=== PATIENT | male | born 2000 | race Caucasian/White ===

== ENCOUNTER 2020-04-14 15:07 | Observation (INO) | payer OTHER, SELFPAY ==
[2020-04-14 15:07] VITALS: BP 139/58; PULSE 81; RESP 16; TEMP 36.4; O2SAT 98; BMI 40.1
--- NOTE | 2020-04-14 15:46 | CT_ITS ---
We are attempting to reach an attending provider to discuss findings. An addendum with communication details will be sent when the communication is complete. STUDY: CT ABDOMEN AND PELVIS WITH CONTRAST REASON FOR EXAM: Male, 19 years old. RLQ pain since this morning, nausea. RADIATION DOSAGE (If Supplied By Facility): CTDIvol = ( 21.79 ) mGy, DLP = ( 1361.98 ) mGycm TECHNIQUE: Transaxial images were obtained from the dome of the diaphragm to the symphysis pubis without oral contrast. Oral and amp; IV Gastrografin and amp; 100mL Isovue-300 was administered. Sagittal and coronal images were reconstructed. Individualized dose optimization techniques were used for this CT. COMPARISON: None. FINDINGS: The visualized lung bases are unremarkable. The visualized portions of the heart are within normal limits. Normal liver. Normal gallbladder and extrahepatic biliary system. Normal spleen. Normal pancreas. Normal bilateral adrenal glands. Normal right kidney. Normal left kidney. Normal visualized stomach. Oral contrast noted in the small bowel. Colonic diverticulosis. Increased stool throughout the colon. The appendix measures up to 7 mm in diameter and does not fill with contrast. Minimal if any inflammatory changes are appreciated. Small pericecal lymph nodes are noted. Normal abdominal aorta. Normal inferior vena cava. Normal retroperitoneum. Normal urinary bladder. There is a small umbilical hernia containing fat. Normal osseous structures. CT/Abdomen/Pelvis WITH Contrast IMPRESSION: Borderline appendix which does not fill with contrast. Early appendicitis is difficult to exclude therefore. Mesenteric lymphadenitis is also possible. Electronically Signed: Joshua Key MD at 17:54 EST , Service support ,
[2020-04-14 15:53] LABS: Absolute Lymphocyte Count 2.12 X10^3/uL (0.83-4.51); Absolute Neutrophil Count 6.6 X10^3/uL (2.0-7.7); Basophil# 0.03 X10^3/uL; Basophil% 0.3 % (0-1); Eosinophils% 1.1 % (0-5); Hematocrit 43.2 % (40-54); Hemoglobin 14.4 g/dL (13.0-16.5); Lymphocyte # 2.12 X10^3/ul (4.0); Lymphocyte % 22.4 % (19-41); Mean Corp Hgb Conc 33.3 g/dL (32-36); Mean Corpuscular Hgb 28.3 pg (27.0-32.0); Mean Platelet Vol. 11.1 fl (6.2-12.0); Monocyte# 0.54 X10^3/uL; Monocyte% 5.7 % (0-10); NRBC Flagged by Analyzer 0 % (0-5); Neutrophil # 6.64 X10^3/uL (2.7-7.7); Neutrophil % 70.3 % (47-70); Platelet Count 281 K/mm3 (150-450); RBC Distribution Width CV 12.5 % (11.6-14.6); RBC Distribution Width SD 38.6 fl (35.1-43.9); Red Blood Count 5.08 M/mm3 (4.6-6.2); White Blood Count 9.5 K/mm3 (4.4-11.0)
[2020-04-14] MEDS: 0.9% Normal Saline 1,000 ML 1000 ML IV (16:03)
[2020-04-14 16:05] LABS: Anion Gap 4 (5-15); BUN 10 mg/dL (7-18); BUN/Creat Ratio 10.5 RATIO (10-20); Calcium,Total 9.6 mg/dL (8.5-10.1); Chloride 107 mmol/L (98-107); Creatinine, Serum 0.95 mg/dL (0.70-1.30); EST Glomerular Filtration Rate 105 mL/min (>60); Est Glom Filt Rate - Afr Amer 128 mL/min (>60); Glucose 90 mg/dL (74-106); Potassium 3.7 mmol/L (3.5-5.1); Sodium Level 140 mmol/L (136-145)
[2020-04-14 16:07] LABS: Mucous, Urine 0 SEEN /hpf (<or=2+); Red Blood Cells-Urine 0 SEEN /hpf (0-5); Squamous Epithelial Cells - UA 0 SEEN /hpf (0-5); White Blood Cells 0 SEEN /hpf (0-5)
--- NOTE | 2020-04-14 16:12 | ED.VISSUMM ---
- ER Visit Summary Date of Service: 04/14/20 Chief Complaint: Abdominal pain History of Present Illness: The patient is a 19 M with no primary care physician. He reports his right lower quad abdominal pain began this morning. It was what woke him from sleep. Describes it as a sharp pain this morning. It is now dull. Is 8 out of 10 at worst and 3-10 currently. Is worsened by movement or pushing on it. Is relieved by nothing. Is been nauseated, but no vomiting. No diarrhea. His last problem was yesterday. No motor medication. No dysuria or frequency. Patient is never had a thing like this before. He does have a family history of kidney stones. No personal history of kidney stones. He denies flank pain. Physical Examination: Vitals: Stable. Afebrile. General: Well-nourished and well-developed. Head: Normocephalic atraumatic. Neck: Supple, no lymphadenopathy. No JVD. Nontender. Cardiovascular: Regular rate and rhythm. No murmurs. Respiratory: No respiratory distress. Clear to auscultation bilaterally. Abdominal: Soft, moderate right lower quadrant tenderness to palpation, nondistended, normal bowel sounds. No guarding, rebound, or peritoneal signs. Back: Nontender. Extremities: Nontender, no edema. Skin: Normal color, no rash. Neurologic: Alert and oriented ?3. Cranial nerves II through XII are intact. Normal strength and sensation. Psych: Normal affect. Test Results: CBC is normal. Chem-7 is normal. UA is positive for ketones only. Clinical Impression(s) from Imaging Studies Abdomen/Pelvis CT 04/14/20 15:46 IMPRESSION: Borderline appendix which does not fill with contrast. Early appendicitis is difficult to exclude therefore. Mesenteric lymphadenitis is also possible. Electronically Signed: Josuha Key MD at 17:54 EST , Service support , ADDENDUM: 04/14/20 3556 IMPRESSION: Borderline appendix which does not fill with contrast. Early appendicitis is difficult to exclude therefore. Mesenteric lymphadenitis is also possible. N.B. : The above information has been verbally conveyed by Joshua Key MD to Adiel Choi MD, on 04/14/2020 18:02:49 (ET). Electronically Signed: Joshua Key MD at 17:54 EST , Service support , Emergency Department Course and Treatment: Patient had an IV placed. He was given a liter normal saline. He refused pain or nausea medications. He is resting comfortably. Treatment Plan: The CT and patient presentation was discussed with Dr. Hu who has seen him in the emergency department. Patient does not want to have surgery tonight. He will be admitted to the hospital overnight for observation. Disposition: Admitted in stable condition. Impression: 1. Abdominal pain. This note was generated with [employer] dictation software. It may contain incorrect words, spelling, and punctuation that were not noted in review of the chart prior to signing ED Disposition - Plan for ED Patient: Referrals: Care Physician,No Primary [NON-STAFF] -
[2020-04-14 16:22] LABS: Color, Urine Yellow (Yellow); Glucose, Dipstick Normal (Normal); Ketone-Dipstick 5 mg/dl (Negative); Leukocyte Esterase-Dipstick Negative /ul (Negative); Nitrite-Dipstick Negative (Negative); Occult Blood-Urine Negative /ul (Negative); Protein-Dipstick Negative (Negative); Specific Gravity, Urine 1.015 (1.002-1.030); Urine Bilirubin Dipstick Negative (Negative); Urine Clarity Clear (Clear); Urine Urobilinogen Normal (Normal)
[2020-04-14 16:50] LABS: Bacteria 1+ /hpf (None Seen)
[2020-04-14 17:52] VITALS: BP 129/53; PULSE 74; RESP 16; O2SAT 97
--- NOTE | 2020-04-14 18:03 | CM.ED ---
Social Work Consult: No PCP Informant: Self Referral Met with patient in room. Introduced self and group social worker role. Patient agreeable to speak with this group social worker. This group social worker broached topic of no PCP for patient. Patient confirms to have not had a PCP until today. Patient states I just set up an appointment. Patient reports to have set up an appointment with Dr. Mckenna Santiago with [facility] in [place], [place]. Patient denies any community concerns/needs. Patient denies transportation concerns. Dr. Choi updated on patient plan to follow up with Dr. Santiago. This group social worker updated patient medical chart with new PCP information. Kam SCHMITZ, CESIA
--- NOTE | 2020-04-14 18:59 | PCM.HP.BLA ---
History and Physical Date of Admission: 04/14/20 Chief Complaint: abdominal pain History of Present Illness: 19 y/o WM presents with sudden onset of right lower quadrant abdominal pain that awoke him from sleep early this morning. Accompanied by nausea and decreased appetite, denies emesis. He denies fevers. Denies previous such abdominal pain. States that pain is less when he doesn't move, presently 2 out of 10 and mostly a pressure type pain He presented to [facility] ED. He is found to have a normal WBC of 9.5K with minimal left shift of differential. CT scan - Normal visualized stomach. Oral contrast noted in the small bowel. Colonic diverticulosis. Increased stool throughout the colon. The appendix measures up to 7 mm in diameter and does not fill with contrast. Minimal if any inflammatory changes are appreciated. Small pericecal lymph nodes are noted. Past Medical History: asthma Past Surgical History: Tonsillectomy hernia surgery as child Medications: inhaler - rarely ibuprofen prn Allergies: Has no known drug allergies Social history: TOB use denies Review of Systems: General - denies fevers, some decrease in appetite earlier, but hungry now Cardiovascular denies chest pain,denies heart problems Pulmonary denies shortness of breath, denies coughing up blood Gastrointestinal as per HPI, denies blood in stools Neurological denies numbness/weakness of extremities, denies seizures, denies history of head trauma, denies history of stroke Genitourinary denies burning with urination, denies blood in urine Hematological denies spontaneous/prolonged bleeding Skin denies open non healing wounds Musculoskeletal denies history of fractures Endocrine denies diabetes Psychological denies hallucinations Physical examination: Vital signs Temp 97.6F HR 81 BP 139/58 RR 16 Ht: 5'10 General WD/WN WM in no apparent distress, alert and oriented, not septic appearing HEENT Normocephalic. EOM intact with sclera clear . Neck is supple with no jugular venous distention noted. Trachea is midline. Lungs normal respiratory excursion, no breathlessness. No rales/rhonchi/wheezing noted. No labored breathing noted, such as retractions. No cough heard. Heart regular. Abdomen soft but tender in right lower quadrant with no peritoneal signs, obese. Extremities no pitting edema noted. Genitourinary/Rectal deferred Skin normal skin integrity. Neurological non focal. Psychological normal affect, patient is calm and appropriate Impression: RLQ abdominal pain Discussion/Plan: I have discussed the above with the patient. I have offered procedure of laparoscopic appendectomy I have explained the procedure to the patient. I have counseled the patient as to the risks of the procedure, including but not limited to: infection, bleeding, injury to any blood vessels/nerves, scar tissue, injury to any intraabdominal organs, injury to kidney/ureters, injury to bowel/bladder, intraabdominal abscess/bleeding, hernias at incisional sites, wound infections, possible open procedure, complications of anesthesia, postoperative pneumonia/cardiac problems/blood clots etc. the patient understands. The patient was offered a surgery/procedure. The provider and patient have discussed in detail the risk of exposure to and/or potential harm posed by the COVID-19 virus with having a surgery/procedure at this time versus the risk of delaying the surgery/procedure. It is not possible to know either the risk of delaying the surgery or procedure or chance of getting an infection with perfect accuracy, but a joint decision was made between the patient and the provider to proceed at this time with the scheduled surgery/procedure. At this time, he would like to take a wait and see approach. Will plan admission with IV antibiotics and will reassess patient's status tomorrow. I have answered all questions to the patient?s satisfaction and the patient has no further questions.
[2020-04-14 19:23] VITALS: BP 120/66; PULSE 69; RESP 16; TEMP 36.6; O2SAT 100
[2020-04-14] MEDS: Morphine 4 MG/ML Syringe IV (19:27)
[2020-04-14] MEDS: Ondansetron 4 MG/2 ML Vial IV (19:27)
[2020-04-14 20:05] VITALS: BMI 40.1; BMI 40.2
[2020-04-14 20:26] VITALS: BP 143/77; PULSE 79; RESP 16; TEMP 36.8; O2SAT 97
[2020-04-14] MEDS: 0.9% Normal Saline 1,000 ML 125 ML IV (21:40)
[2020-04-14] MEDS: 0.9% Saline Lock 10 ML Syringe IV (21:40)
[2020-04-15] VITALS (10 sets, daily range): BP systolic 99–136; BP diastolic 49–83; PULSE 16–86; RESP 16–18; TEMP 36.2–36.9; O2SAT 93–100; BMI 40.1
[2020-04-15] MEDS: Morphine 2 MG/ML Syringe IV (02:05)
[2020-04-15] MEDS: 0.9% Saline Lock 10 ML Syringe IV (02:06)
[2020-04-15] MEDS: 0.9% Normal Saline 1,000 ML 125 ML IV (05:27)
--- NOTE | 2020-04-15 12:15 | APP_PTH ---
PATIENT: KALLI ELDER LOC: [facility]3 U#:[id number] AGE/SX: 19/M ROOM: VA312 RE04/14/[address]: Dr. Monica Hu MD : 2000 BED: 1 DIS: 04/15/2020 SPEC #: [id number] RECD: 04/17/20 08:55 STATUS: ALESIA REQ #: [id number] BECKIE: 04/15/20 12:[address]: Monica Hu DEPT: SURGICAL PATHOLOGY RECD BY: Vilma Ramos ENTERED: 04/17/20 10:03 SP TYPE: APPENDIX OTHR DR: Dr. Mckenna Santiago DO Tissues: Appendix, NOS Procedures: Surgery Specimen Level III HEADER OPERATION: Laparoscopic appendectomy PRE-OP DIAGNOSIS: Acute appendicitis TISSUE SUBMITTED: Appendix MICROSCOPIC DIAGNOSIS Appendix, appendectomy: Acute appendicitis. AM:ritu 04/18/2020 MICROSCOPIC DESCRIPTION Slides are reviewed. GROSS DESCRIPTION Received in fixative is one container labeled with the patient's name and designated appendix. The specimen consists of an appendix measuring 7.5 cm in length and up to 0.7 cm in diameter. The attached periappendiceal adipose tissue measures up to 1 cm in width. No obvious perforation is identified. The lumen appears pinpoint. No fecalith is identified. The entire appendix is submitted in three cassettes. Cassette 1 also contains the tip and proximal portion. / MAURY:ritu 04/17/20 TC:2 [facility]: [id number]
--- NOTE | 2020-04-15 12:30 | OP.PCM_ITS ---
Report of Operation Date of Procedure: 04/15/20 Pre-Operative Diagnosis: RLQ abdominal pain, abnormal CT scan of GI tract Post-Operative Diagnosis: abnormal appearing appendix - not perforated, probable early appendicitis Surgery/Procedure Performed:: laparoscopic appendectomy Description of Surgical Findings:: probable early appendix, distal appendix dilated and minimally injected, large amount of intraabdominal adipose tissue Type of Anesthesia:: General Anesthesiologist: Manny Randolph Specimen's removed: appendix Estimated Blood Loss (mL): minimal Fluids Replaced: 350ml RL Description of Procedure: After informed consent was obtained, the patient was brought into the Operating Room. Appropriate time out protocol was followed. The patient was placed in the supine position on the operating table. The patient was then placed under general anesthesia by the anesthesia provider. The patient?s abdomen was then prepped with a sterile surgical skin preparation and sterile surgical drapes were placed. The infraumbilical skin fold was grasped with penetrating towel clamps and the skin and subcutaneous tissues were infiltrated with 0.25% marcaine with epinephrine. A incision was then made with a 15 blade scalpel. A Veress needle was then inserted into the intraabdominal cavity and checked to be in the proper position with a normal saline drop test. A CO2 pneumoperitoneum was then created. Once this was achieved, the Veress needle was removed and an11 mm trocar was placed in its stead. A 10 mm laparoscope was then inserted into the trocar. Careful examination of the intraabdominal contents was then done. There was no evidence of injury to any internal organs from placement of the Veress needle or the trocar. Under direct visualization, a 12mm suprapubic trocar and a 5mm left mildine trocar was then placed into the intraabdominal cavity. The skin and subcutaneous tissues at these sites were first infiltrated with 0.25% marcaine with epinephrine. Attention was then directed to the right lower quadrant. The appendix was visualized. The appendix appeared distally slightly enlarged with minimal injected, no evidence of perforation. The mesentery of the appendix was taken down by cauterizing the tissue from the free edge to the base of the appendix using the Harmonic scalpel. Once the base of the appendix was freed of surrounding tissues, then the linear gastrointestinal stapling device was brought into the abdominal cavity via the 12mm port and placed across the base of the appendix. The stapling device was fired, thus stapling across the base of the appendix and transecting it simultaneously. There was no evidence of perforation of the appendix. There was cloudy/purulent peritoneal fluid noted. The pelvic cavity was vigorously irrigated with normal saline and all irrigant was aspirated out. The appendix was placed in an Endobag and this was brought out through the suprapubic trocar. The appendix was forwarded to Pathology for analysis. The appendiceal stump was carefully examined. There was no evidence of any active bleeding or fecal leakage. The surrounding tissues were also examined and there was no evidence of any active bleeding or fecal/bile leakage. The intraabdominal cavity was examined and there was no evidence of any further inflammation or tissue abnormality. The CO2 pneumoperitoneum was released and all trocars were removed intact. The suprapubic fascia and periumbilical fascia were reapproximated with a fi gure-of-8 vicryl suture. All skin incisions were reapproximated with monocryl suture. Cavilon and steristrips were applied to reinforce skin closure and proper sterile dressings were placed. Sponge, needle, and instrument count were verified and correct at the time of skin closure. The patient was then extubated and brought to the Recovery Room in stable condition. - Complications none noted - Admit VTE Documentation VTE Present on Admission: Yes VTE Mechan Device Prophylaxis: SCD's
--- NOTE | 2020-04-15 12:32 | DCINST_ITS ---
Discharge Diet: No Restrictions - avoid carbonated beverages for a couple of days, drink pleny of fluids Discharge Activity: Return to Normal Activity, May not drive while taking narcotic pain medications. Lifting Restrictions: no lifting greater than 20 pounds for two weeks Call your doctor if your incision/area has: Continuous Slow Oozing, Foul Smelling Discharge Additional Instructions: Recommended pain control regimen - May take 600 mg ibuprofen (Motrin) and then in 3-4 hours, may take 650 mg acetaminophen (Tylenol), then in 3-4 hours may take 600 mg ibuprofen, then in 3- 4 hours may take 650 mg acetaminophen and so on for 2-3 days May take narcotic pain medication for pain that is not controlled by above and at night for comfort through the night Leave dressings in place May get dressings wet in shower - do not scrub in the area and pat dry Do not soak - no tub baths/swimming If dressing appears to be soiled/open at one end/no longer sealed - may remove dressing but leave site uncovered (do not replace with any type of dressing) - l eave steristrips in place - may get wet but do not scrub in the area and pat dry Medications to take at Discharge Hydrocodone Bitart/Apap 5-325 [Cordova 5MG-325MG] 1 tablet PO Q8H PRN PRN 5 Days #15 tablet 04/15/20 Allergies/Adverse Reactions: Allergies No Known Allergies Allergy (Verified 04/14/20 15:09) The following prescriptions were given: Hydrocodone Bitart/Apap 5-325 [Cordova 5MG-325MG] 1 tablet PO Q8H PRN PRN 5 Days #15 tablet PRN Reason: Pain Score 5-10 Transmission Status: Received by [facility]/pharmacy #[id number] Primary Care Physician: Care Physician,No Primary [NON-STAFF] - Test Results: Test results from this visit will be discussed in further detail at your follow- up appointment, if applicable. Please Follow Up With: Monica Hu MD - clary When: to be seen in 10-14 days, please call for date and time, thank you
[2020-04-15] MEDS: Bupiv/Epi 0.25% 30 ML Vial (13:00)
[2020-04-15] MEDS: Ketorolac 30 MG/ML Syringe IV (14:02)
[2020-04-15] MEDS: HYDROcodone Bitartrate/Apap 5/325 Tablet PO (15:56)
== END 2020-04-15 17:05 | disposition home or self-care (01) ==
LOC: ED 18:03 → MS3 19:19
PROVIDERS: Admitting Provider Surgery; Emergency Provider Emergency Medicine; PCP Internal Medicine; Visit Provider Surgery
PROC: 0DTJ4ZZ Resection of Appendix, Percutaneous Endoscopic Approach (ICD-10-PCS; CPT 44970; principal; 2020-04-15 12:15)
DX: K35.80 Unspecified acute appendicitis (principal); J45.909 Unspecified asthma, uncomplicated
CPT/HCPCS: 00840; 44970; 74177; 80048; 81001; 85025; 87426; 88304; 96361; 96365; 96366; 96375; 96376; 99218; 99285; J7030; J7050; Q9967; A4216; G0378; J2405